=== PATIENT | female | born 1980 | race Caucasian/White ===

== ENCOUNTER 2021-02-22 05:40 | Day surgery (SDC) | payer BC ==
[~2021-02-22] VITALS: Ht 180.3 cm; Wt 63.6 kg
--- NOTE | ~2021-02-22 | OR ---
[facility] [address], [place] [address] Draft DATE OF OPERATION: 02/22/2021 SURGEON: Adan Woods MD PREOPERATIVE DIAGNOSES: 1. Chronic frontal sinusitis. 2. Chronic ethmoiditis. 3. Chronic maxillary sinusitis. 4. Chronic sphenoiditis. 5. Chronic sinus headaches, recurring. 6. Acute sinusitis. POSTOPERATIVE DIAGNOSES: 1. Chronic frontal sinusitis. 2. Chronic ethmoiditis. 3. Chronic maxillary sinusitis. 4. Chronic sphenoiditis. 5. Chronic sinus headaches, recurring. 6. Acute sinusitis. PROCEDURES: 1. Bilateral endoscopic frontal ethmoidectomy, 22743-65. 2. Bilateral sphenoidotomies, endoscopic, 25841-44. 3. Bilateral maxillary antrostomies, 38464-41. INDICATIONS: This 40-year-old female has had a year's of sinus infections characterized by purulent drainage, especially pain, headache. These headaches have grown more frequent that more than half the time she wakes up with one. These headaches are referable mainly to the forehead and the base of the occiput. As part of her evaluation, a CT scan was done of the sinuses, which showed chronic disease, polypoid blockage in the left frontal recess in the anterior ethmoids and also the sphenoid sinus on the right side. Minor thickening was found throughout the sinus labyrinth. However, the patient's headaches were more global. The patient has failed treatment with decongestants, antihistamines, nasal steroids, sprays, also is being considered for immunotherapy postoperatively. Because of failure medically to control the patient's symptoms, the above procedures were indicated. DESCRIPTION OF PROCEDURE: The patient was placed in the supine position, had an orotracheal intubation, was placed PATIENT NAME: BRETT PIÑA OPERATIVE REPORT DATE OF : 76 REPORT #: [id number] PHYSICIAN: ADAN WOODS MD PCP: JANKI BARBOSA DC REPORT IS CONFIDENTIAL AND NOT TO BE RELEASED WITHOUT AUTHORIZATION [facility] [address], [place] [address] Draft under general anesthesia. The patient's nasal cavity was photographed endoscopically. Beginning on the left side, about 1.5 mL were injected into the anterior portion of the middle turbinate and the uncinate process. The Kerrison forceps were used to remove the lateral portion of the turbinate anteriorly making it as thin as possible without any lateral extension. The microdebrider also helped with this maneuver. The uncinate process was incised with a sickle knife, removing it mostly in one piece. The rest of the remnants were removed with a Thru-Cut ethmoid punch and the microdebrider. A large maxillary ostium was discovered. The ethmoid bulla was entered with a curette and going from air cell to air cell with a Thru-Cut ethmoid punch and the Kerrison frontal sinus punch. The dissection was carried back through the lamina of the middle turbinate and posterior ethmoids. The sphenoid sinus was entered transostially removing that bone with Kerrison forceps opening up the natural ostium until it was about at least 1 cm in diameter. Then switching to a 70 degree scope, the frontal recess was dissected out. The mucosa was found to be very friable like wet tissue paper which came off very easily. The Kerrison forceps were used to good effect to remove a large part of the beak of the frontal sinus opening that up widely. The patient then had that cavity packed with some Gel-Foam with some mupirocin ointment. Another 1.5 mL injected on the right side. The Kerrison forceps again used to remove the lateral portion of the anterior part of the middle turbinates. Also, the inferior portion was removed with a Thru-Cut ethmoid punch as it was quite lateral. Uncinate process removed same way the left side was and on this side there was an accessory ostium and a good bridge of bone between that and the natural ostium, so it was removed to the intervening bone between that, so that the patient would not have any recycling difficulties. Complete ethmoidectomy is done the same way. A transostial sphenoidotomy performed and very thick gum like secretions aspirated out of the sphenoid sinus. Again, about a cm sinusotomy was created then with a 70 degree scope. The rest of the procedure was done going up into the frontal recess, removing all of the diseased mucosa, the inner sinus septations and the Kerrison frontal sinus forceps used again to remove as much of the beak of the frontal sinus as possible making a good wide sinusotomy. Estimated blood loss was 350 mL. The patient had Gelfoam with mupirocin or bacitracin placed on both sides. The patient went to recovery in good condition. MD NE Gonzalez/SAMPSON /[id number] PATIENT NAME: BRETT PIÑA OPERATIVE REPORT DATE OF : [birth year] REPORT #: [id number] PHYSICIAN: ADAN WOODS MD PCP: JANKI BARBOSA DC REPORT IS CONFIDENTIAL AND NOT TO BE RELEASED WITHOUT AUTHORIZATION [address] [address] Draft Copies: ~ PATIENT NAME: BRETT PIÑA OPERATIVE REPORT DATE OF : 76 REPORT #: [id number] PHYSICIAN: ADAN WOODS MD PCP: JANKI BARBOSA DC REPORT IS CONFIDENTIAL AND NOT TO BE RELEASED WITHOUT AUTHORIZATION
--- NOTE | 2021-02-22 09:39 | NUR ---
02/22/21 0939 Grisel Puente 0986 PATIENT ARRIVES TO PACU UNRESPONSIVE TO PAIN. ORAL AIRWAY IN PLACE. RESP EVEN AND UNLABORED, MASK AT 6 LITERS.
--- NOTE | 2021-02-22 10:20 | NUR ---
PT ALERT, ORIENTED AND SUPPORTED BY HER . HE WILL REMAIN DURING SURGERY. PT PLEASANT,ALL QUESTIONS ASKED ANSWERED. GAVE BLESSING, WILL FOLLOW NEEDED
--- NOTE | 2021-02-22 10:56 | NUR ---
PATIENT BACK IN DAY SURGERY ROOM FROM PACU. DENIES PAIN. DENIES NAUSEA. IV SITE WNL. MOUSTACHE DRESSING CDI. PATIENT DROWSY, BUT ANSWERING QUESTIONS APPROPRIATELY. SCDs ON. TOLERATING SIPS OF WATER. DECLINES SOMETHING TO EAT AT THIS TIME. AT BEDSIDE. CALL LIGHT WITHIN REACH.
--- NOTE | 2021-02-22 11:05 | NUR ---
1105-PATIENT STATES SHE IS HAVING SOME NAUSEA AND WOULD LIKE MEDICATION. 1109-PHONE CALL TO DR. DIAZ AND WAS GIVEN VO FOR IV PHENERGAN 12.5MG NOW AND REPEAT IF NECESSARY. 1125-PHENERGAN GIVEN IV SLOW PUSH.
--- NOTE | 2021-02-22 11:49 | NUR ---
PATIENT IS DROWSY AND RESTING IN BED. VSS. WHEN ASKED IF NAUSEA IS BETTER PATIENT RESPONDS "I THINK SO". DENIES PAIN. MOUSTACHE DRESSING CLEAN, DRY, AND INTACT. PATIENT TAKING SIPS OF WATER. AT BEDSIDE. LIGHTS TURNED OFF. CALL LIGHT WITHIN REACH.
--- NOTE | 2021-02-22 12:30 | NUR ---
DENIES NEED TO VOID FEELS BETTER NO NAUSEA.
--- NOTE | 2021-02-22 13:39 | NUR ---
PATIENT AWAKE. AMBULATES TO BATHROOM WITH RN ASSISST AND . GAIT STEADY AND TOLERATED WELL. VOIDED 400ML. VSS. DRESSING CHANGED WITH SMALL AMOUNT OF RED DRAINAGE. DENIES PAIN IN NASAL AREA BUT SOME PAIN IN HER THROAT. PATIENT IS READY TO GO HOME. AT BEDSIDE WITH PATIENT.
--- NOTE | 2021-02-22 14:01 | NUR ---
1350-PROVIDED PATIENT WITH DISCHARGE INSTRUCTIONS. PATIENT VERBALIZED UNDERSTANDING AND ALL QUESTIONS ANSWERED. IN ROOM FOR DISCHARGE INSTRUCTIONS. ROSA MARIA AMBULATES TO WHEELCHAIR AND PROVIDED RIDE TO FRONT OF HOSPITAL WHERE WAS WAITING. CALLED RX INTO [facility] IN [place].
== END 2021-02-22 13:50 | disposition home or self-care (01) ==
LOC: DS 05:40 → OPS 05:40 → DS 06:45 → OPS 13:50
PROVIDERS: ATTEND Otolaryngology
PROC: 09TU8ZZ Resection of Right Ethmoid Sinus, Via Natural or Artificial Opening Endoscopic (ICD-10-PCS; 2021-02-22)
PROC: 09CX8ZZ Extirpation of Matter from Left Sphenoid Sinus, Via Natural or Artificial Opening Endoscopic (ICD-10-PCS; 2021-02-22)
PROC: 09CW8ZZ Extirpation of Matter from Right Sphenoid Sinus, Via Natural or Artificial Opening Endoscopic (ICD-10-PCS; 2021-02-22)
PROC: 099R8ZZ Drainage of Left Maxillary Sinus, Via Natural or Artificial Opening Endoscopic (ICD-10-PCS; 2021-02-22)
PROC: 099Q8ZZ Drainage of Right Maxillary Sinus, Via Natural or Artificial Opening Endoscopic (ICD-10-PCS; 2021-02-22)
PROC: 09TV8ZZ Resection of Left Ethmoid Sinus, Via Natural or Artificial Opening Endoscopic (ICD-10-PCS; principal; 2021-02-22 06:45)
DX: J32.1 Chronic frontal sinusitis (principal); J32.2 Chronic ethmoidal sinusitis; J32.0 Chronic maxillary sinusitis; J32.3 Chronic sphenoidal sinusitis; J01.90 Acute sinusitis, unspecified
CPT/HCPCS: J0131; J0330; J1100; J1885; J2250; J2405; J2550; J2704; J2765; J3010; J7121